=== PATIENT | female | born 1970 | race African-American/Black ===

== ENCOUNTER 2017-03-11 06:48 | Emergency (ER) | payer BC ==
[~2017-03-11] VITALS: Ht 149.9 cm; Wt 56.7 kg
[2017-03-11 07:13] VITALS: BP 156/70
[2017-03-11 07:56] LABS: Urine Bilirubin Negative (Negative); Urine Blood 1+ /uL (Negative); Urine Color Colorless (Yellow); Urine Glucose Normal (Normal); Urine Ketone Negative (Negative); Urine Nitrite Negative (Negative); Urine RBC 1 /hpf (0 - 4); Urine Urobilinogen Normal (Negative); Urine pH 6.5 (5.0-8.0)
== END 2017-03-11 10:30 | disposition home or self-care (01) ==
LOC: ER 06:48
DX: R33.9 Retention of urine, unspecified (principal); I10 Essential (primary) hypertension; E06.9 Thyroiditis, unspecified; K58.9 Irritable bowel syndrome, unspecified; Z87.440 Personal history of urinary (tract) infections; Z88.2 Allergy status to sulfonamides; Z91.040 Latex allergy status
CPT/HCPCS: 51702; 81001